=== PATIENT | male | born 1990 | race Caucasian/White ===

== ENCOUNTER 2023-03-20 04:38 | Emergency (ER) | payer OTHER ==
--- NOTE | 2023-03-20 04:40 | NUR ---
pt in custody of [facility], accompanied by 3 officers. pt is aggressive, states "i dont want any of that". unable to triage pt, made aware and at chair side.
--- NOTE | 2023-03-20 04:43 | NUR ---
PATIENT BIB [facility]. PATIENT EXAMINED BY DR. bailey. PATIENT MEDICALLY CLEARED AND RELEASED IN CUSTODY IN STABLE CONDITION. ORIGINAL PRE-BOOK FORM GIVEN TO OFFICER rajat.
== END 2023-03-20 04:43 ==
LOC: MED 04:38
DX: V49.88XA Car occupant (driver) (passenger) injured in other specified transport accidents, initial encounter; Y93.89 Activity, other specified; Y92.89 Other specified places as the place of occurrence of the external cause; Y99.8 Other external cause status
CPT/HCPCS: 99283